=== PATIENT | male | born 1990 | race Two or more races ===

== ENCOUNTER 2021-03-09 06:23 | Emergency (ER) | payer OTHER ==
[~2021-03-09] VITALS: Ht 182.9 cm; Wt 104.3 kg
--- NOTE | 2021-03-09 06:39 | NUR ---
PT AVRIL FROM HOME PT CALLED 911 C/O DRUG INDUCED PSYCHOSIS, DELUSION OF PERSECUTION - THINKS PEOPLE ARE AFTER HIM. ADMITS TO METH USE THIS MORNING. PT NOTED WITH BIZARRE BEHAVIOR, AVOIDS EYE CONTACT, AND HALLUCINATIONS. PT A/OX2. TOLERATING R/A WELL WITH NO SOB AT 98%. SAFETY 1:[address] PT PLACED IN PT GOWN AND VALUABLES TO NURSING STATION.
--- NOTE | 2021-03-09 06:42 | NUR ---
PT SEEN BY RAJESH MOORE
--- NOTE | 2021-03-09 06:49 | NUR ---
PROVIDED PT WITH URINAL. PT NOT ABLE TO URINATE AT THIS TIME. WILL F/U LATER
[2021-03-09] MEDS ORDERED: OLANZAPINE 5 MG TABLET ONE (06:55)
[2021-03-09] MEDS ORDERED: LORAZEPAM 1 MG TABLET ONE (06:55)
[2021-03-09] MEDS ORDERED: LORAZEPAM 1 MG TABLET PO ONE (07:00)
[2021-03-09] MEDS ORDERED: OLANZAPINE 5 MG TABLET PO ONE (07:00)
--- NOTE | 2021-03-09 07:01 | NUR ---
OCCUPATIONAL HEALTH NURSE AT PT'S BEDSIDE
[2021-03-09 07:39] LABS: BASOPHILS % (AUTO) 0.3 % (0.0-2.0); EOSINOPHILS % (AUTO) 1.2 % (0.0-6.0); HEMATOCRIT 40 % (39-51); HEMOGLOBIN 13.5 g/dL (13.5-17.5); LYMPHOCYTES # (AUTO) 1.2 K/uL (0.8-4.8); LYMPHOCYTES % (AUTO) 22.6 % (20.0-44.0); MEAN CORPUSCULAR HGB CONC 34 g/dl (31.0-36.0); MEAN CORPUSCULAR VOLUME 96 fL (80-96); MONOCYTES # (AUTO) 0.5 K/uL (0.1-1.30); NEUTROPHILS # (AUTO) 3.5 K/uL (1.8-8.9); NEUTROPHILS % (AUTO) 65.9 % (43.0-81.0); PLATELET COUNT (AUTO) 160 K/uL (150-450); RED BLOOD CELL COUNT(AUTO) 4.15 MIL/uL (4.5-6.0); WHITE BLOOD COUNT (AUTO) 5.3 K/uL (4.3-11.0)
[2021-03-09 07:40] LABS: ALANINE AMINOTRANSFERASE 40 U/L (12-78); ALBUMIN 3.7 g/dL (3.4-5.0); ALCOHOL, BLOOD < 3 mg/dL (0-0); ALKALINE PHOSPHATASE 45 U/L (46-116); ASPARTATE AMINOTRANSFERASE 30 U/L (15-37); BILIRUBIN,DIRECT 0.3 mg/dL (0.0-0.2); BILIRUBIN,TOTAL 1.3 mg/dL (0.2-1.0); CALCIUM, SERUM 9.2 mg/dL (8.5-10.1); CHLORIDE 106 mmol/L (98-107); CREATININE 1.7 mg/dL (0.6-1.3); GLUCOSE 119 mg/dL (74-106); POTASSIUM 3.1 mmol/L (3.5-5.1); SODIUM SERUM 138 mmol/L (136-145); TOTAL PROTEIN, SERUM 8.1 g/dL (6.4-8.2); UREA NITROGEN, BLOOD 10 mg/dL (7-18)
[2021-03-09 07:47] LABS: CARBON DIOXIDE 22 mmol/L (21-32)
[2021-03-09 08:01] LABS: ACETAMINOPHEN 0 ug/ml (10-30)
--- NOTE | 2021-03-09 08:10 | NUR ---
THE PATIENT IS RECEIVED IN ER BED #13. ALERT AND ORIENTED X3. DENIES SI/HI. RESPIRATION REGULAR AND UNLABORED. DENIES PAIN. THE PATIENT STATES THAT HE WANTS TO CONTINUE SLEEPING. THE PATIENT`S WISHES RESPECTED. WILL CONTINUE TO MONITOR THE PATIENT.
[2021-03-09 08:57] LABS: BILIRUBIN,URINE SMALL (NEGATIVE); COLOR,URINE DARK YELLOW (YELLOW); LEUKOCYTE ESTERASE ,URINE NEGATIVE (NEGATIVE); NITRITE, URINE NEGATIVE (NEGATIVE); PROTEIN,URINE 100 mg/dl (NEGATIVE); UGLUCOSE NEGATIVE (NEGATIVE)
[2021-03-09 09:23] LABS: BACTERIA,URINE Few /HPF (None Seen); RBC,URINE 0-2 /HPF (0-2); SQUAMOUS EPITHELIAL CELL,UR Few /HPF (None Seen); WBC,URINE 0-2 /HPF (0-3)
[2021-03-09 09:24] LABS: MUCUS,URINE Moderate /LPF (None Seen); SPERM,URINE Few /HPF (None Seen)
--- NOTE | 2021-03-09 11:07 | NUR ---
"SS Consult: SS Consult requested for homelessness. Pt. 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 Upon SS consult, pt. was alert and oriented x3 (place, time and self). Pt. presents with a dysphoric mood and appears drowsy. Per EMR, pt. was administered Ativan, Zyprexa a few hours earlier. Pt. was falling asleep throughout the interview. Pt. presented with slurred speech and appeared unkempt. SW explored pt.'s social support. Pt. stated he has a sister named Darlyn ([phone]). SW explored pt.'s current living situation. Pt. stated he lived in a tiny home at [[address] [id number]]. Pt. stated he has been homeless for a month. SW explored pt.'s financial situation. Pt. stated he does not receive social security income or disability. SW explored pt.'s substance abuse history. Pt. stated he uses Methamphetamine and Cocaine. SW placed addiction resources in the chart. SW explored pt.'s psychiatric history. Pt. denied psychiatric diagnosis. Pt. denied current visual/auditory hallucinations. Pt. denied suicidal/homicidal ideations. Plan:Pt. will be discharged back to his tiny home located at [[address] [facility] [address]] when medically cleared. Homeless waiver and resources where placed in the pt.'s chart to be given upon DC. Year-round shelters: [facility] [address] [place], [place] [id number] ; [facility] [address] [place] [address]; [facility] [id number] [facility] [address] Winter Shelters: SPA 2 | [facility] Audra: Denise Address: Confidential (call for location ) Population Served: Coed # of Beds: 57 SPA 4 | [facility] Provider: Home at Last Address: [address] [place] [address] # of Beds: 49 Population Served: Coed SPA 6 | [facility] Provider: Home at Last Address: [address] [facility] [address] # of Beds: 49 Population Served: Coed [facility] Provider: James KLEIN Address: [address] [facility] [address] # of Beds: 20 Population Served: Women [facility] Facility Provider: Home at Last Address: [address] [facility] [address] # of Beds: 30 Population Served: Women SPA 8 | [facility] Provider: Nicolas ceballos Natali Address: [address] [facility] [address] # of Beds: 65 Population Served: Coed Hygiene: [facility]: [address] [facility] ; [facility] [address] [facility] ; [facility] [address] [facility] [place] . Food Resources: [facility] at [facility]- [address] [facility]; Meet Each Need with Dignity ([facility]) [address] [facility]; [facility] [address] [facility]; [facility] [address] [facility]. Mental Health resources provided: [facility] [address] [place] [address] ; [facility] [place] [address] [facility] [address], [place] [address] ; Flory Grimm [facility] [address] [place] [address] ; [facility] [address] [place] [address] Healthcare Clinics: [facility] [address] [facility], [address] [place]. [place] ; [facility] [address] [facility] [address] [place] [address]; [facility] [place] [address] [facility] [place] [phone]) [phone] Counseling--Outpatient [facility] [address] [facility], [place] [address] (Specializes in in-depth psychotherapy for emotional distress: anxiety, depression, interpersonal conflicts, life transitions, childhood abuse) [facility] [address] [place] [address] (Assist with solving problem marital difficulties, separation & divorce, aging parents, & grief, chronic & terminal illness) [facility] [address] [place] [address] (Deal with loss & grief, anxiety, marital difficulties) Homebound/Mental Health Services [address] [facility], [address] [place] [address] (Provide in-home mental services to people who are incapable of leaving their homes) [facility] Senior Service/Resource Center [address] [place] [address] [facility] [address] [place] [address] PSYCHIATRIC OUTPATIENT SERVICES [facility] Partial Hospitalization and Intensive Outpatient Program (Managed Care and [place] Only)[address] [place] [address] [facility] [phone] [facility] Partial Hospitalization and Outpatient [id number] [facility] [address] [place], [place] [phone] [facility] Gia[address] [facility] [address] [place], [place] [phone] [facility] Partial Hospitalization and Outpatient [id number] [facility], [phone] Substance Abuse resources provided included: [facility] Substance Abuse Self-Helpline ([facility]) ; [facility] [address] [facility]. [place] [phone] ; [facility] [address] [facility] [address] ; [facility] [address] [place] [address] ; [facility] [address] [facility] [phone] ; [facility] [address] [facility] [address] ; [facility] 9[address] [facility] [phone] ; [facility] Substance Abuse Helpline([facility] ; [facility] ; [facility] [place]; [facility] [place]; [facility] Baudilio Campos; [facility] [place]; [facility] [place]; [facility] [place]; [facility] [place] [place]; Alcoholics Anonymous -SFV; Cv-Tsli-Pvuvenk ; Marijuana Anonymous -[facility]; Narcotics Anonymous [email or web address];"
--- NOTE | 2021-03-09 11:58 | NUR ---
PT RESTING IN BED. EASILY AROUSABLE, ON MONITOR W/ STABLE VITALS. WILL CONTINUE TO MONITOR.
--- NOTE | 2021-03-09 15:34 | NUR ---
THE PATIENT IS ALERT AND ORIENTED X4. DENIES PAIN. IN ROOM AIR AND DENIES SOB. RESPIRATION REGULAR AND UNLABORED. PATIENT DENIES SI/HI. DENIES HAVING ANY HALLUCINATIONS. WILL CONTINUE TO MONITOR THE PATIENT.
--- NOTE | 2021-03-09 18:20 | NUR ---
The patient is alert and oriented x4. Denies pain. In room air and denies SOB. Respiration regular and unlabored. Denies SI/HI. Denies hallucinations. Patient discharged in stable condition. Written and verbal after care instructions given. Patient verbalizes understanding of instruction.
[2021-03-09 19:59] VITALS: BP 126/84
== END 2021-03-09 19:59 | disposition home or self-care (01) ==
LOC: ER 06:26
DX: F15.10 Other stimulant abuse, uncomplicated (principal); F19.159 Other psychoactive substance abuse with psychoactive substance-induced psychotic disorder, unspecified; Z90.89 Acquired absence of other organs; Z60.2 Problems related to living alone
CPT/HCPCS: 36415; 80048-TC; 80076-TC; 81001; 85025-TC; G0480

== ENCOUNTER → 2021-04-04 | Emergency (ER) | payer OTHER ==
[~2021-04-04] VITALS: Ht 177.8 cm; Wt 74.8 kg
[~2021-04-04] MED LIST: ASPIRIN EC 325 MG TABLET.DR PO ONE; FAMOTIDINE (20 MG) 20 MG TABLET ONE; FAMOTIDINE (20 MG) 20 MG TABLET PO ONE; GABA300C PO; MAG HYDROX/AL HYDROX/SIMETH 30 ML UDC ONE; MAG HYDROX/AL HYDROX/SIMETH 30 ML UDC PO ONE
--- NOTE | 2021-04-04 05:27 | NUR ---
HAKEEM FROM THE STREETS C/O MID EPIGASTRIC PAIN X FEW HOURS -N/V/D. PATIENT ALERT AND ORIENTED X3. AMBULATORY WITH NON LABORED BREATHING. PATIENT IN BED 12 ON MONITOR.
--- NOTE | 2021-04-04 05:27 | NUR ---
URINE COLLECTED AND SENT TO LAB
--- NOTE | 2021-04-04 05:30 | NUR ---
PER DR. VIKTOR CALZADA, IV S/L NOT NEEDED VERBAL ORDER
--- NOTE | 2021-04-04 06:55 | NUR ---
COMPOSITE BOND TECHNICIAN AT PT'S BEDSIDE
[2021-04-04 07:45] LABS: BASOPHILS % (AUTO) 0.3 % (0.0-2.0); EOSINOPHILS % (AUTO) 0.9 % (0.0-6.0); HEMATOCRIT 44 % (39-51); HEMOGLOBIN 14.9 g/dL (13.5-17.5); LYMPHOCYTES # (AUTO) 1.2 K/uL (0.8-4.8); LYMPHOCYTES % (AUTO) 13.7 % (20.0-44.0); MEAN CORPUSCULAR HGB CONC 34 g/dl (31.0-36.0); MEAN CORPUSCULAR VOLUME 96 fL (80-96); MONOCYTES # (AUTO) 0.5 K/uL (0.1-1.30); MONOCYTES % (AUTO) 5.1 % (2.0-12.0); NEUTROPHILS # (AUTO) 7.3 K/uL (1.8-8.9); PLATELET COUNT (AUTO) 200 K/uL (150-450); RED BLOOD CELL COUNT(AUTO) 4.55 MIL/uL (4.5-6.0); WHITE BLOOD COUNT (AUTO) 9.1 K/uL (4.3-11.0)
[2021-04-04 08:58] LABS: CALCIUM, SERUM 9.1 mg/dL (8.5-10.1); CREATININE 1.4 mg/dL (0.6-1.3); POTASSIUM 4.1 mmol/L (3.5-5.1)
[2021-04-04 09:03] LABS: ALBUMIN 3.7 g/dL (3.4-5.0); TOTAL PROTEIN, SERUM 8.3 g/dL (6.4-8.2)
--- NOTE | 2021-04-04 12:07 | NUR ---
Patient does not wish to proceed with medical care recommended by Dr. Gardner. Patient given information related to possible complications, up to and including , which could occur as a result of leaving the hospital at this time. Patient verbalizes understanding of risks involved due to leaving against medical advice. Patient has signed AMA form.IV removed. Catheter intact and site benign. Pressure and 4x4 applied to site. No bleeding noted.
[2021-04-04 12:09] VITALS: BP 123/79
== END | disposition left against medical advice (07) ==
LOC: ER 05:22
DX: R10.13 Epigastric pain (principal); F15.10 Other stimulant abuse, uncomplicated; R10.12 Left upper quadrant pain; Z90.89 Acquired absence of other organs; Z59.00 Homelessness unspecified
CPT/HCPCS: 36415; 71045-TC; 80053-TC; 83690-TC; 84484-TC; 85025-TC

== ENCOUNTER 2021-04-05 13:37 | Emergency (ER) | payer OTHER ==
[~2021-04-05] VITALS: Ht 177.8 cm; Wt 90.7 kg
[2021-04-05 14:06] VITALS: BP 134/98
--- NOTE | 2021-04-05 14:55 | NUR ---
Patient eloped from facility. ER MD notified.
== END 2021-04-05 14:58 | disposition left against medical advice (07) ==
LOC: ER 13:44
DX: F15.10 Other stimulant abuse, uncomplicated (principal); F17.200 Nicotine dependence, unspecified, uncomplicated; Z90.49 Acquired absence of other specified parts of digestive tract; Z59.00 Homelessness unspecified

== ENCOUNTER 2021-04-07 15:49 | Emergency (ER) | payer OTHER ==
[~2021-04-07] VITALS: Ht 180.3 cm; Wt 104.3 kg
--- NOTE | 2021-04-07 15:59 | NUR ---
pt aline from the streets c/o chest tightness, bilateral hand paresthesia x today. ppt admits to meth use 3 days ago. gowned and placed on monitor. stable vitals. awaiting md arnold.
--- NOTE | 2021-04-07 16:17 | NUR ---
dr shepard at bedside for eval
--- NOTE | 2021-04-07 16:27 | NUR ---
slab depiler operator at bedside for blood draw
[2021-04-07 16:37] LABS: BASOPHILS % (AUTO) 0.8 % (0.0-2.0); EOSINOPHILS % (AUTO) 4.1 % (0.0-6.0); HEMATOCRIT 40 % (39-51); HEMOGLOBIN 13.2 g/dL (13.5-17.5); LYMPHOCYTES # (AUTO) 2.3 K/uL (0.8-4.8); LYMPHOCYTES % (AUTO) 34.5 % (20.0-44.0); MEAN CORPUSCULAR HGB CONC 33 g/dl (31.0-36.0); MEAN CORPUSCULAR VOLUME 97 fL (80-96); MONOCYTES # (AUTO) 0.7 K/uL (0.1-1.30); MONOCYTES % (AUTO) 11.1 % (2.0-12.0); NEUTROPHILS # (AUTO) 3.2 K/uL (1.8-8.9); NEUTROPHILS % (AUTO) 49.5 % (43.0-81.0); PLATELET COUNT (AUTO) 183 K/uL (150-450); RED BLOOD CELL COUNT(AUTO) 4.14 MIL/uL (4.5-6.0); WHITE BLOOD COUNT (AUTO) 6.5 K/uL (4.3-11.0)
[2021-04-07 16:48] LABS: CALCIUM, SERUM 8.8 mg/dL (8.5-10.1); CARBON DIOXIDE 28 mmol/L (21-32); CHLORIDE 106 mmol/L (98-107); CREATININE 1.4 mg/dL (0.6-1.3); GLUCOSE 99 mg/dL (74-106); POTASSIUM 3.6 mmol/L (3.5-5.1); SODIUM SERUM 138 mmol/L (136-145); UREA NITROGEN, BLOOD 11 mg/dL (7-18)
[2021-04-07 16:53] LABS: ALANINE AMINOTRANSFERASE 30 U/L (12-78); ALBUMIN 3.3 g/dL (3.4-5.0); ALKALINE PHOSPHATASE 61 U/L (46-116); ASPARTATE AMINOTRANSFERASE 23 U/L (15-37); BILIRUBIN,DIRECT 0.2 mg/dL (0.0-0.2); BILIRUBIN,TOTAL 0.6 mg/dL (0.2-1.0); TOTAL PROTEIN, SERUM 7.4 g/dL (6.4-8.2)
[2021-04-07] MEDS ORDERED: GABA300C PO (17:28)
--- NOTE | 2021-04-07 17:57 | NUR ---
Patient discharged to home in stable condition. Written and verbal after care instructions given. Patient verbalizes understanding of instruction.
[2021-04-07 17:58] VITALS: BP 146/82
== END 2021-04-07 17:58 | disposition home or self-care (01) ==
LOC: ER 15:56
DX: R07.89 Other chest pain (principal); F12.90 Cannabis use, unspecified, uncomplicated; Z90.89 Acquired absence of other organs; Z59.00 Homelessness unspecified; Z79.899 Other long term (current) drug therapy
CPT/HCPCS: 36415; 71045-TC; 80048-TC; 80076-TC; 84484-TC; 85025-TC

== ENCOUNTER 2021-04-11 11:46 | Emergency (ER) | payer OTHER ==
[~2021-04-11] VITALS: Ht 180.3 cm; Wt 104.3 kg
[~2021-04-11 11:46] MED LIST changes: -ASPIRIN EC 325 MG TABLET.DR PO ONE; -FAMOTIDINE (20 MG) 20 MG TABLET ONE; -FAMOTIDINE (20 MG) 20 MG TABLET PO ONE; -MAG HYDROX/AL HYDROX/SIMETH 30 ML UDC ONE; -MAG HYDROX/AL HYDROX/SIMETH 30 ML UDC PO ONE
--- NOTE | 2021-04-11 11:46 | NUR ---
PT BIB SELF C/O SI/DEPRESSION. REQUESTING VOLUNTARY PSYCH ADMISSION TO [facility]. PT IS AAOX4, NOT IN RESPIRATORY DISTRESS, V/S STABLE, KEPT RESTED AND COMFORTABLE. WILL CONTINUE TO MONITOR.
--- NOTE | 2021-04-11 11:55 | NUR ---
URINE SPECIMEN COLLECTED AND SENT TO LAB.
--- NOTE | 2021-04-11 12:03 | NUR ---
COVID SWAB DONE AND SENT TO LAB
--- NOTE | 2021-04-11 12:06 | NUR ---
ER PHLEB AT BEDSIDE FOR BLOOD DRAW.
[2021-04-11 13:04] LABS: BASOPHILS % (AUTO) 0.5 % (0.0-2.0); BILIRUBIN,URINE NEGATIVE (NEGATIVE); COLOR,URINE YELLOW (YELLOW); HEMATOCRIT 40 % (39-51); HEMOGLOBIN 13.3 g/dL (13.5-17.5); LEUKOCYTE ESTERASE ,URINE NEGATIVE (NEGATIVE); LYMPHOCYTES # (AUTO) 1.4 K/uL (0.8-4.8); LYMPHOCYTES % (AUTO) 30.2 % (20.0-44.0); MEAN CORPUSCULAR HGB CONC 33 g/dl (31.0-36.0); MEAN CORPUSCULAR VOLUME 97 fL (80-96); MONOCYTES # (AUTO) 0.5 K/uL (0.1-1.30); MONOCYTES % (AUTO) 10.1 % (2.0-12.0); NEUTROPHILS # (AUTO) 2.6 K/uL (1.8-8.9); NEUTROPHILS % (AUTO) 56.2 % (43.0-81.0); NITRITE, URINE NEGATIVE (NEGATIVE); PLATELET COUNT (AUTO) 169 K/uL (150-450); PROTEIN,URINE NEGATIVE (NEGATIVE); RED BLOOD CELL COUNT(AUTO) 4.12 MIL/uL (4.5-6.0); UGLUCOSE NEGATIVE (NEGATIVE); WHITE BLOOD COUNT (AUTO) 4.7 K/uL (4.3-11.0)
[2021-04-11 13:14] LABS: ALANINE AMINOTRANSFERASE 33 U/L (12-78); ALBUMIN 3.2 g/dL (3.4-5.0); ALCOHOL, BLOOD < 3 mg/dL (0-0); ALKALINE PHOSPHATASE 64 U/L (46-116); ASPARTATE AMINOTRANSFERASE 26 U/L (15-37); BILIRUBIN,DIRECT 0.2 mg/dL (0.0-0.2); BILIRUBIN,TOTAL 0.8 mg/dL (0.2-1.0); CARBON DIOXIDE 26 mmol/L (21-32); CHLORIDE 107 mmol/L (98-107); CREATININE 1.3 mg/dL (0.6-1.3); GLUCOSE 97 mg/dL (74-106); POTASSIUM 3.8 mmol/L (3.5-5.1); SODIUM SERUM 138 mmol/L (136-145); TOTAL PROTEIN, SERUM 7.5 g/dL (6.4-8.2); UREA NITROGEN, BLOOD 12 mg/dL (7-18)
[2021-04-11 13:29] LABS: ACETAMINOPHEN 0 ug/ml (10-30)
[2021-04-11 13:46] VITALS: BP 129/84
--- NOTE | 2021-04-11 15:17 | NUR ---
FAXED CLINICALS TO [facility]
--- NOTE | 2021-04-12 00:55 | NUR ---
DR GRIMES TO [place] [facility]
--- NOTE | 2021-04-12 00:58 | NUR ---
NUMBER FOR REPORT IS [phone] EXT [phone]
--- NOTE | 2021-04-12 01:14 | NUR ---
[facility] WILL BE HERE IN 40 MINS TO TRANSPORT PT TO [facility]
--- NOTE | 2021-04-12 01:56 | NUR ---
REPORT GIVEN TO EMS AT BEDSIDE
--- NOTE | 2021-04-12 01:57 | NUR ---
REPORT GIVEN TO F[facility]IA[facility]
--- NOTE | 2021-04-12 02:14 | NUR ---
TRANSFERRED TO [facility] IN STABLE CONDITION. ALL BELONGINGS PICKED UP
== END 2021-04-12 02:17 ==
LOC: ER 11:47
DX: R45.851 Suicidal ideations (principal); F15.10 Other stimulant abuse, uncomplicated; Z59.01 Sheltered homelessness; Z20.822 Contact with and (suspected) exposure to COVID-19
CPT/HCPCS: 36415; 80048; 80076; 80143; 80307; 80320; 81003; 85025; 87426; 99285; C9803; G0480